=== PATIENT | female | born 1980 | race Caucasian/White ===

== ENCOUNTER 2019-02-28 10:24 | Day surgery (SDC) | payer BC ==
[2019-02-28] MEDS ORDERED: CEFAZOLIN 2 GM/50 ML (PMX) 50 ML IVPB (11:00)
[2019-02-28] MEDS ORDERED: LIDOCAINE 2% (SDV) 5 ML INJ (12:32)
[2019-02-28] MEDS ORDERED: MIDAZOLAM 1 MG/ML 2 ML INJ (12:32)
[2019-02-28] MEDS ORDERED: PROPOFOL 20 ML (12:32)
[2019-02-28] MEDS ORDERED: SUCCINYLCHOLINE CHLORIDE 100 MG/5 ML SYG IV (12:32)
[2019-02-28] MEDS ORDERED: CEFAZOLIN 1 GM INJ (12:32)
[2019-02-28] MEDS ORDERED: SCOPOLAMINE 1.5 MG PATCH (12:36)
[2019-02-28] MEDS ORDERED: ROCURONIUM 50 MG INJ (12:37)
[2019-02-28] MEDS ORDERED: PROPOFOL 100 ML (12:37)
[2019-02-28] MEDS ORDERED: DEXAMETHASONE 4 MG/ML 5 ML INJ (12:48)
[2019-02-28] MEDS ORDERED: ONDANSETRON 4 MG INJ (12:48)
[2019-02-28] MEDS ORDERED: FAMOTIDINE 20 MG INJ (12:48)
[2019-02-28] MEDS ORDERED: METOCLOPRAMIDE 10 MG INJ (12:48)
[2019-02-28] MEDS ORDERED: SUGAMMADEX SODIUM 200 MG/2 ML VIAL IV (13:08)
[2019-02-28] MEDS ORDERED: hydrALAzine 20 MG INJ IV (13:30)
[2019-02-28] MEDS ORDERED: PROCHLORPERAZINE 10 MG INJ IV (13:30)
[2019-02-28] MEDS ORDERED: ONDANSETRON 4 MG INJ IV ×2 (13:30→14:00)
[2019-02-28] MEDS ORDERED: OXYCODONE/ACETAMINOPHEN (5/325) TAB PO (13:30)
[2019-02-28] MEDS ORDERED: MEPERIDINE 25 MG INJ IV (13:30)
[2019-02-28] MEDS ORDERED: LABETALOL HCL 20MG INJ IV (13:30)
[2019-02-28] MEDS ORDERED: FENTAnyl 50 MCG/ML VIAL IV ×3 (13:30)
[2019-02-28] MEDS ORDERED: FUROSEMIDE 20 MG INJ (13:32)
[2019-02-28] MEDS ORDERED: HYDROCODONE/APAP (5/325) TAB PO (14:00)
[2019-02-28] MEDS: OXYCODONE/ACETAMINOPHEN (5/325) TAB PO (15:15)
== END 2019-02-28 16:05 | disposition home or self-care (01) ==
LOC: SDS 10:24
DX: N20.0 Calculus of kidney (principal); I10 Essential (primary) hypertension; E66.9 Obesity, unspecified; Z87.891 Personal history of nicotine dependence
CPT/HCPCS: 50590; 74430; 84703